=== PATIENT | male | born 1940 | race Two or more races ===

== ENCOUNTER → 2022-01-24 | Day surgery (SDC) | payer OTHER ==
[~2022-01-24] VITALS: Ht 170.2 cm; Wt 96.6 kg
[~2022-01-24] MED LIST: APIX2.5T PO; ASPI1TAB20 PO; BUPIVACAINE W/ EPINEPH 0.5% INJ 50ML MDV IJ ONE; CIPROFLOXACIN 400MG/200ML 200 ML IV ONE; DONE1TAB88 PO; DexAMETHasone SOD PHOS 10MG/1ML VIAL INJ ONE; FINA5TAB4 PO; GLYCOPYRROLATE 0.2 MG/ML 1ML VIAL ONE; HYDROmorphone HCL 2 MG/ML VL/or syr IV PRN; LISI20TA28 PO; MIDAZOLAM HCL 2MG/2ML 2ml VIAL (1mg/ml) ONE; NALOXONE HCL 0.4 MG/ML VIAL ONE; NEOSTIGMINE 1 MG/ML INJ (10mg/10ML VIAL) ONE; OMEP20TA PO; ONDANSETRON HCL 4 MG/2 ML VIAL IV PRN; PROPOFOL 10 MG/ML 20 ML IV ONE; ROCURONIUM 10MG/ML 10ML VIAL IV ONE; SIMV10TA84 PO; SUCCINYLCHOLINE CHLORIDE 20 MG/ML 10ML VIAL IV ONE; TAMS0.4C36 PO; fentaNYL CITRATE 100 MCG/2 ML VL ONE
[2022-01-24 10:40] VITALS: BP 177/74
== END | disposition home or self-care (01) ==
LOC: SUR 12-27 08:44
PROVIDERS: ATTEND Urology
DX: N40.1 Benign prostatic hyperplasia with lower urinary tract symptoms (principal); C61 Malignant neoplasm of prostate; I10 Essential (primary) hypertension; J44.9 Chronic obstructive pulmonary disease, unspecified; Z98.890 Other specified postprocedural states; Z79.899 Other long term (current) drug therapy; Z88.5 Allergy status to narcotic agent; Z98.41 Cataract extraction status, right eye; Z98.42 Cataract extraction status, left eye; Z87.891 Personal history of nicotine dependence; Z20.822 Contact with and (suspected) exposure to COVID-19
CPT/HCPCS: 52441; 52442; J0330; J0744; J1100; J2250; J2310; J2704; J3010; L8699; U0003